=== PATIENT | male | born 1965 | race Caucasian/White ===

== ENCOUNTER 2018-04-16 02:14 | Day surgery (SDC) | payer OTHER ==
[~2018-04-16] VITALS: Ht 180.3 cm; Wt 157.0 kg
[~2018-04-16 02:14] MED LIST: ADVAIR DISKU AER 250; ALBU90I INH; ALBU90OI6; ASPI81CH PO; AZIT250 PO; CARV25; CORLANOR5 MG; ENTRESTO 97 MG1 EACH; EXEN5PENI SC; FLUSAL2505 IH; FLUT1DIS5 INH; FURO40 PO; Fluoxetine HCl20 M1 PO; GLIM4; INVOKANA300 MG; LISI5 PO; METF500 PO; METF500C PO; PIOG30 PO; PRED10 PO; SPIR25 PO; TADA10TA PO; TRULICITY1.5 MG/0.5; Zestril PO
== END 2018-04-16 13:10 | disposition home or self-care (01) ==
LOC: MHTC 02:14
PROC: B211YZZ Fluoroscopy of Multiple Coronary Arteries using Other Contrast (ICD-10-PCS; principal; 2018-04-16)
DX: I42.0 Dilated cardiomyopathy (principal); I44.7 Left bundle-branch block, unspecified; E66.9 Obesity, unspecified; E11.9 Type 2 diabetes mellitus without complications
CPT/HCPCS: 82947; 93454; 99152; 99153; C1769; C1894; J1644; J2250; J3010; J7030; Q9967

== ENCOUNTER 2018-12-28 08:55 | Day surgery (SDC) | payer OTHER ==
[~2018-12-28] VITALS: Ht 180.3 cm; Wt 158.8 kg
--- NOTE | 2018-12-28 11:06 | NUR ---
12/28/18 1106 Khalida Chung 6 UNITS OF REGULAR HUMULIN INSULIN GIVEN PRE PROCEDURE IV BY ILIR LOPEZ ORDERED BY MD JOHNSON FOR A BLOOD SUGAR OF 370. PT ALERT AND ORIENTATED AND SAYS "MY BLOOD SUGARS RUN FROM 250-350, THAT'S SOMETHING MY DOCTOR IS WORKING ON WITH ME."
--- NOTE | 2018-12-28 12:24 | NUR ---
12/28/18 1224 Donnie Odom PATIENT STATES HIS NECK IS SORE AND WOULD LIKE SOME TYLENOL BEFORE HE GOES HOME. PATIENT STATES HIS NECK IS SENSITIVE IF HE LAYES ON IT WRONG. DR OSUNA STATES TO GIVE TYLENOL 500 MG PO NOW. VSS
== END 2018-12-28 12:18 | disposition home or self-care (01) ==
LOC: ORSCSDS 08:55
PROVIDERS: Internal Medicine Gastroenterology
PROC: 0DB68ZX Excision of Stomach, Via Natural or Artificial Opening Endoscopic, Diagnostic (ICD-10-PCS; principal; 2018-12-28 11:15)
PROC: 0D758ZZ Dilation of Esophagus, Via Natural or Artificial Opening Endoscopic (ICD-10-PCS; principal; 2018-12-28 11:15)
PROC: 0DB58ZX Excision of Esophagus, Via Natural or Artificial Opening Endoscopic, Diagnostic (ICD-10-PCS; principal; 2018-12-28 11:15)
PROC: 0DB98ZX Excision of Duodenum, Via Natural or Artificial Opening Endoscopic, Diagnostic (ICD-10-PCS; principal; 2018-12-28 11:15)
DX: R13.10 Dysphagia, unspecified (principal); K21.0 Gastro-esophageal reflux disease with esophagitis; K29.00 Acute gastritis without bleeding; K29.80 Duodenitis without bleeding; K44.9 Diaphragmatic hernia without obstruction or gangrene; I50.9 Heart failure, unspecified; Z95.0 Presence of cardiac pacemaker; E11.9 Type 2 diabetes mellitus without complications; J45.909 Unspecified asthma, uncomplicated; I10 Essential (primary) hypertension; E78.5 Hyperlipidemia, unspecified; E66.01 Morbid (severe) obesity due to excess calories; Z68.42 Body mass index [BMI] 45.0-49.9, adult; Z79.4 Long term (current) use of insulin; Z79.899 Other long term (current) drug therapy
CPT/HCPCS: 82947; 88305; 88342; J1815; J2370; J7120

== ENCOUNTER 2019-05-10 11:40 | Day surgery (SDC) | payer OTHER, SELFPAY ==
[~2019-05-10] VITALS: Ht 215.9 cm; Wt 156.8 kg
== END 2019-05-10 14:00 | disposition home or self-care (01) ==
LOC: ORSCSDS 11:40
PROVIDERS: Internal Medicine Gastroenterology
PROC: 0DB68ZX Excision of Stomach, Via Natural or Artificial Opening Endoscopic, Diagnostic (ICD-10-PCS; principal; 2019-05-10 13:45)
DX: R13.10 Dysphagia, unspecified (principal); R11.0 Nausea; Z87.11 Personal history of peptic ulcer disease; K29.70 Gastritis, unspecified, without bleeding; E78.5 Hyperlipidemia, unspecified; E11.9 Type 2 diabetes mellitus without complications; I10 Essential (primary) hypertension; J45.909 Unspecified asthma, uncomplicated; K20.9 Esophagitis, unspecified; K44.9 Diaphragmatic hernia without obstruction or gangrene; Z68.42 Body mass index [BMI] 45.0-49.9, adult; E66.01 Morbid (severe) obesity due to excess calories; Z79.899 Other long term (current) drug therapy
CPT/HCPCS: 82947; 88305; 88342; J2704; J7120

== ENCOUNTER → 2019-11-28 | Outpatient (CLI) | payer OTHER | LOC: LAB SHORT 14:27 → LAB 14:27 | DX: L02.212 Cutaneous abscess of back [any part, except buttock and flank] (principal) | CPT/HCPCS: 87070; 87075; 87205 ==

== ENCOUNTER → 2024-10-27 | Outpatient (CLI) | payer OTHER | LOC: LAB SHORT 16:16 → LAB 16:16 | DX: R30.0 Dysuria (principal) | CPT/HCPCS: 87086 ==